=== PATIENT | male | born 1975 | race Hispanic/Latino ===

== ENCOUNTER → 2025-04-11 | Outpatient (CLI) | payer OTHER ==
--- NOTE | 2025-04-12 05:30 | HMCIMG ---
EXAM: CR Right Foot, 3 views. CLINICAL HISTORY: Displaced intra-articular fracture of the right calcaneus. COMPARISON: None provided. FINDINGS: No acute fracture or aggressive appearing osseous lesion. Mild osteopenia. Mild to moderate osteoarthritis. Prominent plantar and posterior calcaneal enthesophytes. Grossly unremarkable soft tissues. IMPRESSION: No displaced fracture or abnormal contour is evident within the calcaneus and the available views; however, recommend CT scan of the calcaneus for an optimal evaluation. Mild osteopenia. Mild to moderate osteoarthritis. /[place]
--- NOTE | 2025-04-12 05:50 | HMCIMG ---
EXAM: CR Right Ankle, 3 views. CLINICAL HISTORY: Displaced intra-articular fracture of the right calcaneus. COMPARISON: None provided. FINDINGS: No acute fracture or aggressive appearing osseous lesion. Mild osteopenia. Mild to moderate osteoarthritis. Prominent plantar and posterior calcaneal enthesophytes. Grossly unremarkable soft tissues. IMPRESSION: No displaced fracture or abnormal contour is evident within the calcaneus in the available views; however, recommend CT scan of the calcaneus for an optimal evaluation. Mild osteopenia. Mild to moderate osteoarthritis. /[place]
== END | disposition home or self-care (01) ==
LOC: RAH 12:39
PROVIDERS: ATTEND Chiropractor
DX: S92.061D Displaced intraarticular fracture of right calcaneus, subsequent encounter for fracture with routine healing (principal); S93.401D Sprain of unspecified ligament of right ankle, subsequent encounter; M19.071 Primary osteoarthritis, right ankle and foot; M77.31 Calcaneal spur, right foot; M85.871 Other specified disorders of bone density and structure, right ankle and foot; X58.XXXD Exposure to other specified factors, subsequent encounter
CPT/HCPCS: 73610; 73630